=== PATIENT | female | born 1985 | race Caucasian/White ===

== ENCOUNTER → 2017-05-10 | Outpatient (REF) | LOC: WSOH 14:08 | DX: Z02.89 Encounter for other administrative examinations (principal) ==

== ENCOUNTER 2021-03-26 08:49 | Day surgery (SDC) | payer BC ==
[~2021-03-26] VITALS: Ht 165.1 cm; Wt 67.6 kg
[2021-03-26 09:32] VITALS: BP 126/74; PULSE 78; TEMP 97
[2021-03-26] MEDS ORDERED: LEVOXYL0.05 MG PO (09:35)
[2021-03-26] MEDS ORDERED: NORGESTIMATE AN1 TAB PO (09:38)
[2021-03-26] MEDS ORDERED: DIFLUCAN50 MG PO (09:39)
[2021-03-26 11:00] VITALS: BP 93/58; PULSE 78
--- NOTE | 2021-03-26 11:00 | NUR ---
Patient returns to [facility] per cart after having EGD and colonoscopy. Assisted from cart to recliner with two person assist. IV fluids infusing. Patient drowsy and allowed to rest. IV fluids infusing and site is free of redness. Call light in reach. Allowed to rest.
[2021-03-26 11:15] VITALS: BP 99/65; PULSE 75
--- NOTE | 2021-03-26 11:15 | NUR ---
Continues to rest with eyes closed and not disturbed. IV continues to infuse.
[2021-03-26 11:17] VITALS: TEMP 98.6
[2021-03-26 11:30] VITALS: BP 97/64; PULSE 60
--- NOTE | 2021-03-26 11:30 | NUR ---
Continues to rest and not disturbed.
[2021-03-26 11:45] VITALS: BP 93/55; PULSE 72
--- NOTE | 2021-03-26 11:45 | NUR ---
Resting with eyes closed. Has not offered any complaints of discomfort.
--- NOTE | 2021-03-26 11:50 | NUR ---
Awake and taking sips of water. Denies difficulty swallowing or nausea.
--- NOTE | 2021-03-26 11:53 | NUR ---
Dr. Spears in the room and talks with the patient. All questions answered.
--- NOTE | 2021-03-26 12:10 | NUR ---
Patient dressing self. Gait steady in room.
--- NOTE | 2021-03-26 12:13 | NUR ---
Dismissal instructions given and voices understanding of these. Provided office number for questions and concerns.
--- NOTE | 2021-03-26 12:15 | NUR ---
Patient dismissed to home driven by friend and taken to the front door per wheelchair by this RN and assisted into vehicle with instructions in hand.
== END 2021-03-26 12:15 | disposition home or self-care (01) ==
LOC: SDCO 08:49
DX: K29.71 Gastritis, unspecified, with bleeding (principal); K31.89 Other diseases of stomach and duodenum; R19.4 Change in bowel habit; E03.9 Hypothyroidism, unspecified; K90.0 Celiac disease; R19.7 Diarrhea, unspecified; R63.4 Abnormal weight loss; K64.0 First degree hemorrhoids; K63.89 Other specified diseases of intestine; K60.2 Anal fissure, unspecified; R15.2 Fecal urgency; K92.1 Melena; K62.89 Other specified diseases of anus and rectum; Z20.822 Contact with and (suspected) exposure to COVID-19; Z79.890 Hormone replacement therapy; Z79.899 Other long term (current) drug therapy
CPT/HCPCS: J7030